=== PATIENT | female | born 1965 | race Caucasian/White ===

== ENCOUNTER 2022-05-09 09:09 | Outpatient (CLI) | payer SELFPAY | END 2022-05-09 09:10 | disposition home or self-care (01) | PROVIDERS: PCP Family Medicine; Visit Provider Family Medicine | DX: Z00.00 Encounter for general adult medical examination without abnormal findings (principal); E78.5 Hyperlipidemia, unspecified; E03.9 Hypothyroidism, unspecified; R73.03 Prediabetes; Z12.4 Encounter for screening for malignant neoplasm of cervix; F32.9 Major depressive disorder, single episode, unspecified | CPT/HCPCS: 87624; 88175 ==

== ENCOUNTER 2023-10-08 07:55 | Outpatient (CLI) | payer OTHER, SELFPAY | END 2023-10-08 07:56 | disposition home or self-care (01) | LOC: NFLDREF 10-10 05:50 | PROVIDERS: PCP Family Medicine; Referring Provider Family Medicine; Visit Provider Family Medicine | DX: R73.03 Prediabetes (principal); E78.5 Hyperlipidemia, unspecified; E03.9 Hypothyroidism, unspecified | CPT/HCPCS: 80053; 80061; 84439; 84443 ==

== ENCOUNTER 2024-01-02 08:01 | Outpatient (CLI) | payer OTHER, SELFPAY ==
--- NOTE | 2024-01-02 08:15 | MM_ITS ---
Patient: ANGELO GOMEZ Facility:?[facility] RIS Patient ID:?[id number] Site Patient ID:?[id number]. Site :?[id number] Study:?XRay-Breast Bilateral 3D W/CAD-01/02/2024 8:50:27 AM Ordering Physician:Rosi Final Report: BILATERAL SCREENING MAMMOGRAM WITH COMPUTER-AIDED DETECTION AND TOMOSYNTHESIS TECHNIQUE: CC and MLO views were obtained. These mammographic images have been obtained using full-field digital technique. These mammographic images were interpreted with the benefit of computer-aided detection. Breast Tomosynthesis was used in this interpretation. COMPARISON FILM: 02/08/21, 07/30/18, 10/02/16. FINDINGS: There are scattered areas of fibroglandular density. IMPRESSION: There is no radiographic evidence for malignancy. ASSESSMENT: BI-RADS Category 1: Negative RECOMMENDATION: Routine screening mammogram in 1 year. A lay language report of this examination will be provided to the patient. Christian Tong M.D. Diagnostic Radiologist [email or web address] DSM/sp R& Transcribed: 6:26 p.m. SP/Dictated by: Christian Tong MD @ 01/02/2024 9:40:00 AM Signed by:?Christian Tong MD @01/03/2024 5:37:17 AM (Electronic Signature)
== END 2024-01-02 08:02 | disposition home or self-care (01) ==
LOC: MAMMO 08:02
PROVIDERS: PCP Family Medicine; Visit Provider Family Medicine
DX: Z12.31 Encounter for screening mammogram for malignant neoplasm of breast (principal)
CPT/HCPCS: 77063; 77067

== ENCOUNTER 2024-04-17 07:36 | Outpatient (CLI) | payer OTHER, SELFPAY ==
--- OUTSIDE RECORDS SUMMARY | 2024-04-29 12:41 | XMS_ITS | Clinical Summary ---
Author Organization [employer] [facility] [employer] [facility] Address [place], [place] [address] Care Team Providers Care Counter Sales Person Name Role Phone Andre Salazar MD Primary Care Provider + Allergies Active Allergy Reactions Criticality Noted Date Comments Venlafaxine Analogues Headache High 12/30/2012 Tiagabine 05/17/2006 Pregabalin Dizziness,Throat Swelling/Closing High 03/30/2015 Medications Medication Sig Dispensed Refills Start Date End Date Status levothyroxine (SYNTHROID) 88 mcg tablet Take 1 tablet by mouth once daily. 0 09/10/2011 Active methylphenidate (RITALIN) 10 mg tabletIndications: RSD (reflex sympathetic dystrophy) Take 1 tablet by mouth 2 times daily 60 tablet 08/20/2016 Active oxyCODONE-acetamin ophen, 5-325 mg, (PERCOCET) 5-325 mg per tabletIndications: Complex regional pain syndrome type 1 of left upper extremity,Encounte r for medication refill Take 1-2 tablets by mouth every 4 hours if needed for Pain Max acetaminophen dose: 4000mg in 24 hrs. 240 tablet 08/20/2016 Active LORazepam (ATIVAN) 2 mg tabIndications:RSD (reflex sympathetic dystrophy) Take 1 tablet by mouth at bedtime. May repeat x 1 60 tablet 08/20/2016 Active Cimetidine (TAGAMET) 800 mg tablet Take 1 tablet by mouth at bedtime. 0 08/23/2016 Active Active Problems Problem Noted Date Diagnosed Date Sleep disturbance, unspecified 03/02/2013 Vitamin D deficiency 09/08/2012 Lateral epicondylitis of elbow 09/10/2011 Controlled Substance Treatment Agreement 009 Overview: Controlled substance agreement contract was signed 03/13/[address] Andre salazar Controlled substance agreement for Methylphenidate 10mg, Percocet 5/325mg, Vicodin 5/500mg on file and signed 07/18/09. Designated pharmacy: [facility] Prescribing physician: Andre Salazar MD Diagnosis: Other malaise and fatigue 06/12/2006 Anemia, unspecified 05/17/2006 Reflex sympathetic dystrophy of the upper limb 0 05/17/2006 Overview: left upper Social History Tobacco Use Types Packs/Day Years Used Date Smoking Tobacco: Former Cigarettes Q uit: 04/04/2005 Smokeless Tobacco: Never Tobacco Cessation:Counseling Given: Yes Alcohol Use Standard Drinks/Week Comments Yes 3 (1 standard drink = 0.6 oz pur e alcohol) Sex and Gender Information Value Date Recorded Sex Assigned at Not on file Gender Identity Not on file Sexual Orientation Not on file Obstetrics History Para Term AB IAB SAB Ectopic Multiple Livin g Live Births 2 2 2 Date Outcome GA Total Labor Labor/2nd/3rd Weight Sex Type Anes PTL Lynne A1 A5 Name Clin Term Term Last Filed Vital Signs Vital Sign Reading Time Taken Comments Blood Pressure 143/87 10/04/2016 8:44 AM LIGHTNING PROTECTION INSTALLER Pulse 72 10/04/2016 8:44 AM LIGHTNING PROTECTION INSTALLER Temperature 36.6 ??C (97.8 ??F) 10/04/2016 8 :44 AM LIGHTNING PROTECTION INSTALLER Respiratory Rate 18 08/20/2016 8:24 AM CDT Oxygen Saturation 99% 10/04/2016 8:4 4 AM LIGHTNING PROTECTION INSTALLER Inhaled Oxygen Concentration - - Weight 64.8 kg (142 lb 12.8 oz) 10/04/2016 8:44 AM LIGHTNING PROTECTION INSTALLER Patient weighed with shoes on. Height 156 cm (5' 1.42) 08/23/2016 10: 16 AM CDT Body Mass Index 26.62 08/23/2016 10:16 AM CDT Plan of Treatment Health Maintenance Due Date Last Done Comments Tdap 1975 HIV for age 15-65 1979 Hepatitis C screening for age 18-79 1982 Tetanus booster 1984 Colonoscopy through age 75 2009 Lipids for age 45-75 2009 Mammogram for age 45-75 2009 Zoster (shingles) series for age 50+ (1 of 2) 2014 Depression screening for age 12+ 08/21/2017 08/21/2016, 08/20/2016, 07/13/2016, Additional history exists BMI (ht and wt on same day) for age 18+ 08/23/2017 08/23/2016, 08/20/2016 COVID-19 vaccine series (2022-24 season) 2023 Influenza for age 50-64 07/05/2024 Pap test for age 21-65 05/09/2025 2, 05/09/2022, 06/04/2018, Additional history exists Pneumococcal series for age 6-64 Aged Out No longer eligible based on patient's age to complete this topic Procedures Procedure Name Priority Date/Time Associated Diagnosis Comments HPV THIN PREP Routine 05/09/2022 8:15 AM CDT from Last 3 Months or Most Recently Relevant to Health Maintenance Results * HPV HIGH RISK (05/09/2022 8:15 AM CDT) TYPE 16 Negative Negative 05/11/2022 2:05 PM CDT [facility] TYPE 18 Negative Negative 05/11/2022 2:05 PM CDT [facility] OTHER HIGH RISK TYPES Negative Negative 05/11/2022 2:05 PM CDT [facility] Other (Cervical) 05/09/2022 8:15 AM CDT 05/09/2022 5:34 PM CDT Narrative [facility] - 05/11/2022 2:05 PM CDT HPV types 16, 18, 31, 33, 35, 39, 45, 51, 52, 56, 58, 59, 66 and 68 DNA were undetectable or below the pre-set threshold. Methodology: D1G Dusty 4800 HPV Test Hilary Brothers MD [facility] [address] [place] [address], [place] from Last 3 Months or Most Recently Relevant to Health Maintenance Care Teams Counter Sales Person Relationship Specialty Start Date End Date Andre Salazar MD PCP - General Physical Medicine and Rehabilitation 09/19/12
== END 2024-04-17 07:37 | disposition home or self-care (01) ==
LOC: NFLDREF 04-29 12:40
PROVIDERS: PCP Family Medicine; Referring Provider Family Medicine; Visit Provider Family Medicine
DX: E78.5 Hyperlipidemia, unspecified (principal); E03.9 Hypothyroidism, unspecified; R73.03 Prediabetes
CPT/HCPCS: 80053; 80061; 84439; 84443

== ENCOUNTER 2024-05-17 17:36 | Emergency (ER) | payer OTHER, SELFPAY ==
[2024-05-17 17:47] VITALS: BP 123/102; PULSE 136; RESP 24; TEMP 36.3; O2SAT 99
--- NOTE | 2024-05-17 18:00 | CRLHL7_ITS ---
For Patients: As a result of the Century Cures Act, medical imaging exams and procedure reports are released immediately into your electronic medical record. You may view this report before your referring provider. If you have questions, please contact your health care provider. Indication: VOMITING Technique: Upright and supine views of the abdomen and pelvis. Comparison: None Findings/impression : No evidence of bowel obstruction. No free air. No significant stool burden. The visualized lower thorax is unremarkable. No acute osseous abnormality. Dictated by Chris Cano MD @ 05/17/2024 7:26:27 PM (Electronically Signed)
[2024-05-17] MEDS: ONDANSETRON 2 MG/ML inj 4 MG IVP (18:25)
[2024-05-17] MEDS: 0.9 % SODIUM CHLORIDE 1000 ml 1,000 ML IV ×2 (18:25→19:18)
[2024-05-17 18:30] LABS: Basophils Percent Auto 0.2 % (0.0-3.0); Hematocrit 47.3 % (33.0-51.0); Hemoglobin* 16.2 gm/dL (12.0-16.0); Immature Granulocytes Pct Auto 0.1 %; Lymphocytes Percent Auto 10.1 % (20-44); Mean Corpuscular HGB Conc 34 gm/dL (32-36); Mean Corpuscular Hemoglobin 29 pg (26-34); Mean Corpuscular Volume 84 fL (80-100); Monocytes Percent Auto 3.7 % (0.0-11.0); Neutrophils Percent Auto 85.9 % (42.0-72.0); Platelet Count* 501 K/uL (140-440); RDW Coefficient of Variation % 13.1 % (11.5-15.5); Red Blood Count 5.66 m/uL (4.00-5.20); White Blood Count* 11.25 K/uL (4.50-11.00)
[2024-05-17 18:31] LABS: Lactate* 4.3 mmol/L (0.5-1.9)
[2024-05-17 18:36] LABS: Slide Review Reflex No
--- OUTSIDE RECORDS SUMMARY | 2024-05-17 18:41 | XMS_ITS | Clinical Summary ---
Author Organization [employer] [facility] [employer] [facility] Address [place], [place] [address] Care Team Providers Care Mobile Engineer Name Role Phone Andre Salazar MD Primary [...] on file and signed 07/18/09. Designated pharmacy: [facility] Prescribing physician: Andre Salazar MD Diagnosis: [...] Comments Blood Pressure 143/87 10/04/2016 8:44 AM CIVIL TRANSPORTATION ENGINEER Pulse 72 10/04/2016 8:44 AM CIVIL TRANSPORTATION ENGINEER Temperature 36.6 ??C (97.8 ??F) 10/04/2016 8 :44 AM CIVIL TRANSPORTATION ENGINEER Respiratory Rate 18 08/20/2016 8:24 AM CDT Oxygen Saturation 99% 10/04/2016 8:4 4 AM CIVIL TRANSPORTATION ENGINEER Inhaled Oxygen Concentration - - Weight 64.8 kg (142 lb 12.8 oz) 10/04/2016 8:44 AM CIVIL TRANSPORTATION ENGINEER Patient weighed with shoes on. Height 156 [...] 16 Negative Negative 05/11/2022 2:05 PM CDT [facility] TYPE 18 Negative Negative 05/11/2022 2:05 PM CDT [facility] OTHER HIGH RISK TYPES Negative Negative 05/11/2022 2:05 PM CDT [facility] Other (Cervical) 05/09/2022 8:15 AM CDT 05/09/2022 5:34 PM CDT Narrative [facility] - 05/11/2022 2:05 PM CDT HPV types 16, 18, 31, 33, 35, 39, 45, 51, 52, 56, 58, 59, 66 and 68 DNA were undetectable or below the pre-set threshold. Methodology: ChargeBee Dusty 4800 HPV Test Hilary Brothers MD [facility] [address] [place] [address], [place] from Last 3 Months or Most Recently Relevant to Health Maintenance Care Teams Mobile Engineer Relationship Specialty Start Date End Date Andre Salazar MD PCP - General Physical Medicine and Rehabilitation 09/19/12
[2024-05-17 18:43] LABS: Albumin* 5.9 g/dL (3.3-5.0); Chloride* 97 mmol/L (96-114); Sodium* 139 mmol/L (135-149)
[2024-05-17 18:46] LABS: Alkaline Phosphatase* 89 U/L (40-150); Anion Gap 31 mEq/L (7-15); Aspartate Amino Transferase* 34 U/L (12-35); Bilirubin Direct* 0.5 mg/dL (0.0-0.5); Bilirubin Total* 0.8 mg/dL (0.1-1.5); Blood Urea Nitrogen* 24 mg/dL (7-30); Calcium* 10.9 mg/dL (8.4-10.6); Carbon Dioxide* 11 mmol/L (20-32); Creatinine* 1.7 mg/dL (0.5-1.5); Estimated Glomerular Filt Rate 34 ml/min; Glucose* 158 mg/dL (60-115); Total Protein* 9.8 g/dL (6.0-8.3)
[2024-05-17 18:47] LABS: Alanine Aminotransferase* 38 U/L (4-35); Lipase* 73 U/L (23-300)
--- NOTE | 2024-05-17 19:28 | ED.GENADULT ---
HPI - General Adult General Chief complaint: Nausea/Vomiting Stated complaint: vomiting, dehydrated, headaches, dizziness Time Seen by Provider: 05/17/24 17:38 Source: patient Mode of arrival: ambulatory Limitations: no limitations History of Present Illness HPI narrative: 58-year-old female coming in today complaining of vomiting going on for the last 2 straight days. She states that she has not been able to keep anything down including her medications. She feels weak. She has abdominal discomfort when she vomits secondary to cramping. She denies any diarrhea. She denies any urinary symptoms. She denies any recent travel or sick contacts. She does state that when a week and half ago she did have her dose of Tirzepatide increased, her 2nd dose was done this Saturday just a couple days prior to when the vomiting started. She denies any blood in her vomitus. Related Data Home Medications ?Medication ?Instructions ?Recorded ?Confirmed esomeprazole magnesium 20 mg 20 mg PO QDAY 05/09/22 05/01/24 capsule,delayed release (Nexium) multivitamin 1 tab PO QDAY 08/14/22 05/01/24 tirzepatide 5 mg/0.5 mL 5 mg subcut QWEEK 05/01/24 05/01/24 subcutaneous pen injector Previous Rx's ?Medication ?Instructions ?Recorded estradiol 0.01% (0.1 mg/gram) 1 g vaginal 2XW #42.5 grams 10/10/23 vaginal cream escitalopram oxalate 20 mg tablet 20 mg PO QDAY #90 tabs 10/14/23 (Lexapro) levothyroxine 100 mcg capsule 100 mcg PO QDAY #90 caps 05/01/24 metformin 500 mg tablet,extended 500 mg PO QPM #90 tabs 05/01/24 release 24 hr rosuvastatin 5 mg tablet 5 mg PO DAILY #90 tabs 05/01/24 promethazine 25 mg tablet 25 mg PO TID PRN #10 tabs 05/17/24 Allergies Allergy/AdvReac Type Severity Reaction Status Date / Time venlafaxine Allergy Severe Vomiting Verified 05/01/24 08:31 trazodone Allergy Unknown Hives Verified 05/01/24 08:31 Review of Systems Status of ROS: Reports: 10 or more systems reviewed and unremarkable except as noted in History and below [facility] Medical History Reaction to chronic stress ?F43.8 - Other reactions to severe stress (ICD-10) Degenerative disc disease Prediabetes (03/2022) ?R73.03 - Prediabetes (ICD-10) Hypothyroidism ?E03.9 - Hypothyroidism, unspecified (ICD-10) History of peptic ulcer (2003) ?Z87.11 - Personal history of peptic ulcer disease (ICD-10) History of anxiety disorder ?Z86.59 - Personal history of other mental and behavioral disorders (ICD-10) Dyslipidemia ?E78.5 - Hyperlipidemia, unspecified (ICD-10) Depression ?F32.A - Depression, unspecified (ICD-10) Saint Hilaire's syndrome ?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 - Saint Hilaire's syndrome, unspecified (ICD-10) Complex regional pain syndrome type 1 of right upper extremity (2001) ?G90.511 - Complex regional pain syndrome I of right upper limb (ICD-10) Surgical History History of tubal ligation ?Z98.51 - Tubal ligation status (ICD-10) History of foot surgery (2005) ?Z98.890 - Other specified postprocedural states (ICD-10) History of endometrial ablation (2007) ?Z98.890 - Other specified postprocedural states (ICD-10) History of section ?Z98.891 - History of uterine scar from previous surgery (ICD-10) History of appendectomy (1975) ?Z90.49 - Acquired absence of other specified parts of digestive tract (ICD-10) Family History Other Adopted Social History Narrative: , retired, 2 kids, 3 dogs, adult son with brain injury living at home Non-smoker, quit 12 years, hx 18 pack years Social drinker, 3-4 drinks/week Uninsured, pays rivera Smoking Status: Former smoker Do you use any of these nicotine containing products: None Second hand tobacco smoke exposure: No How often do you have a drink containing alcohol: never AUDIT-C Alcohol total score: 0 Non-prescribed substance use: denies use Little interest or pleasure in doing things: not at all Feeling down, depressed, or hopeless: not at all Exam Narrative: Exam Narrative: Well-nourished well-developed patient in mild distress, very uncomfortable. Alert and oriented. Answers questions appropriately. Mood and affect are appropriate. Thoughts are goal oriented and rational. No tangential or magical thinking noted. Patient speaks in full sentences without needing to catch her breath. HEENT: Normocephalic atraumatic. Pupils are equally round reactive to light. Extraocular muscles are intact. Conjunctivae are moist without any icterus noted. Slightly dry mucous membranes. Posterior pharynx is normal. Neck is soft without any lymphadenopathy or thyromegaly. No masses are appreciated. Cardiovascular: Heart is regular rhythm, tachycardic, S1 and S2 are present without any murmurs. Lungs: Clear to auscultation bilaterally no wheezes rhonchi or rales are appreciated. Patient takes deep breaths without any discomfort. Abdomen: Soft and nontender nondistended with normal bowel sounds. No guarding or rebound. No masses or organomegaly appreciated. Extremities: Bilateral lower extremities are without edema. Normal DP and PT pulses. Skin: Well perfused without any obvious rashes. Const: Vital Signs, click to edit/add: Vital Signs - 24 hr 05/17/24 17:47 05/17/24 19:58 05/17/24 20:58 Temperature 97.3 F L 97.5 F L 97.6 F Pulse Rate [Left P ulse Oximeter] 136 H 94 94 Respiratory Rate 24 18 16 Blood Pressure [Le ft Upper Arm] 123/102 H 129/78 114/71 Pulse Oximetry 99 97 97 Oxygen Delivery Me thod Room Air Room Air Room Air Course Course ED Course: IV is established and fluids are started. Patient receives Zofran. Labs are drawn: CBC shows an elevated white cell count, elevated hemoglobin and elevated platelet count. Normal sodium and potassium. Carbon dioxide is low at 11, anion gap is quite elevated at 31. Creatinine is elevated at 1.7. Lactate is elevated at 4.3, Calcium elevated at 10.9. Total protein and albumin both elevated. Normal lipase. Zofran did not really help her feelings of nausea. So we did give her a dose of IM Phenergan and she did feel significantly better. She did receive 2 L of normal saline. Repeat blood work showed that her CBC had normalized, chemistries were significantly improved, creatinine down to normal at 1.2, lactate down to normal at 1.5, calcium levels normalized. Re-evaluated the patient at this time, she stated that she was feeling significantly better she was no longer tachycardic. She was in a bunch better mood and was smiling. Vital Signs Vital signs: Initial Vital Signs Temperature 97.3 F L 05/17/24 17:47 Temperature Source Temporal Artery Scan 05/17/24 17:47 Pulse Rate 136 H 05/17/24 17:47 Pulse Rhythm Regular 05/17/24 17:47 Respiratory Rate 24 05/17/24 17:47 Blood Pressure 123/102 H 05/17/24 17:47 Blood Pressure Mean 109 H 05/17/24 17:47 Blood Pressure Position Semi-Fowlers 05/17/24 17:47 Pulse Oximetry 99 05/17/24 17:47 Oxygen Delivery Method Room Air 05/17/24 17:47 Vital Signs Temperature 97.3 F L 05/17/24 17:47 Pulse Rate 136 H 05/17/24 17:47 Respiratory Rate 24 05/17/24 17:47 Blood Pressure 123/102 H 05/17/24 17:47 Pulse Oximetry 99 05/17/24 17:47 Oxygen Delivery Method Room Air 05/17/24 17:47 Temperature 97.6 F 05/17/24 20:58 Pulse Rate 94 05/17/24 20:58 Respiratory Rate 16 05/17/24 20:58 Blood Pressure 114/71 05/17/24 20:58 Pulse Oximetry 97 05/17/24 20:58 Oxygen Delivery Method Room Air 05/17/24 20:58 Medications Administered Medications: Discontinued Medications Generic Name Dose Route Start Last Admin Trade Name Freq PRN Reason Stop Dose Admin Sodium Chloride 1,000 mls @ 1,000 mls/hr 05/17/24 18:00 05/17/24 18:25 0.9 % Sodium Chloride 1000 Ml IV 05/17/24 18:59 1,000 mls/hr .Q1H JONNATHAN Administration Sodium Chloride 1,000 mls @ 1,000 mls/hr 05/17/24 18:45 05/17/24 19:18 0.9 % Sodium Chloride 1000 Ml IV 05/17/24 19:44 1,000 mls/hr .Q1H JONNATHAN Administration Ondansetron HCl 4 mg 05/17/24 17:57 05/17/24 18:25 Ondansetron 2 Mg/Ml Inj IVP 05/17/24 17:58 4 mg ONCE ONE Administration Promethazine HCl 25 mg 05/17/24 19:32 05/17/24 19:51 Promethazine 25 Mg/Ml Inj IM 05/17/24 19:33 25 mg ONCE ONE Administration Medical Decision Making MDM Narrative Medical decision making narrative: 58-year-old female with significant dehydration secondary to prolonged vomiting. We discussed causes of vomiting including potential side effect of her medications. Patient will discuss this with her primary care go from there. Recommend she return to the ER she has a return of her symptoms tomorrow and starts vomiting again. Lab Data Lab results reviewed: Yes I reviewed the patient's lab results Labs: Lab Results 05/17/24 05/17/24 Range/Units 18:17 20:42 WBC 11.25 H 8.43 (4.50-11.00) K/uL RBC 5.66 H 4.49 (4.00-5.20) m/uL Hgb 16.2 H 12.8 (12.0-16.0) gm/dL Hct 47.3 37.8 (33.0-51.0) % MCV 84 84 (80-100) fL MCH 29 29 (26-34) pg MCHC 34 34 (32-36) gm/dL RDW Coeff of Jacqueline 13.1 13.0 (11.5-15.5) % Plt Count 501 H 329 (140-440) K/uL Neut % (Auto) 85.9 H 89.3 H (42.0-72.0) % Lymph % (Auto) 10.1 L 7.9 L (20-44) % Blaine % (Auto) 3.7 2.5 (0.0-11.0) % Eos % (Auto) 0.0 0.0 (0.0-7.0) % Baso % (Auto) 0.2 0.1 (0.0-3.0) % Neut # (Auto) 9.70 H 7.50 H (1.7-7.0) K/uL Lymph # (Auto) 1.10 0.70 L (0.90-2.90) K/uL Blaine # (Auto) 0.40 0.20 (0.00-0.90) K/UL Eos # (Auto) 0.00 0.00 (0.00-0.50) K/uL Baso # (Auto) 0.00 0.01 (0.00-0.30) K/uL Abs Immat Gran (auto) 0.00 0.02 (0.00-0.30) K/uL Imm/Tot Granulo (auto) 0.1 0.2 % Sodium 139 139 (135-149) mmol/L Potassium 4.0 3.8 (3.6-5.1) mmol/L Chloride 97 108 (96-114) mmol/L Carbon Dioxide 11 L 13 L (20-32) mmol/L Anion Gap 31 H 18 H (7-15) mEq/L BUN 24 21 (7-30) mg/dL Creatinine 1.7 H 1.2 (0.5-1.5) mg/dL Estimated GFR 34 52 ml/min Glucose 158 H 95 (60-115) mg/dL Lactate 4.3 H* 1.5 (0.5-1.9) mmol/L Calcium 10.9 H 8.9 (8.4-10.6) mg/dL Total Bilirubin 0.8 (0.1-1.5) mg/dL Direct Bilirubin 0.5 (0.0-0.5) mg/dL AST 34 (12-35) U/L ALT 38 H (4-35) U/L Alkaline Phosphatase 89 (40-150) U/L Total Protein 9.8 H (6.0-8.3) g/dL Albumin 5.9 H (3.3-5.0) g/dL Lipase 73 (23-300) U/L Imaging Data X-ray abdomen: Attestation: I have reviewed the pertinent imaging results. Radiologist's impression: Technique: Upright and supine views of the abdomen and pelvis. Comparison: None Findings/impression : No evidence of bowel obstruction. No free air. No significant stool burden. The visualized lower thorax is unremarkable. No acute osseous abnormality. Discharge Plan Discharge Clinical Impression: Vomiting, Acute dehydration Patient Disposition: Home, Self-Care Condition: Improved Additional Instructions: Take nausea medication as needed. Follow-up with your primary care provider as needed. Return to the ER if vomiting returns and you cannot keep down anything. Prescriptions: New promethazine 25 mg tablet 25 mg PO TID PRNQty: 10 0RF No Action multivitamin Tablet 1 tab PO QDAY estradiol 0.01 % (0.1 mg/gram) cream 1 g vaginal 2XW Qty: 42.5 12RF esomeprazole magnesium [Nexium] 20 mg capsule,delayed release(DR/EC) 20 mg PO QDAY tirzepatide 5 mg/0.5 mL pen injector 5 mg subcut QWEEK metformin 500 mg tablet extended release 24 hr 500 mg PO QPM Qty: 90 3RF rosuvastatin 5 mg tablet 5 mg PO DAILY Qty: 90 3RF levothyroxine 100 mcg capsule 100 mcg PO QDAY Qty: 90 1RF escitalopram oxalate [Lexapro] 20 mg tablet 20 mg PO QDAY Qty: 90 3RF Follow Up/Referrals: Hilary Brothers MD [Primary Care Provider] - Stand Alone Forms: [facility] Info Instructions
[2024-05-17] MEDS: PROMETHAZINE 25 MG/ML INJ IM (19:51)
[2024-05-17 19:58] VITALS: BP 129/78; PULSE 94; RESP 18; TEMP 36.4; O2SAT 97
[2024-05-17 20:48] LABS: Lactate* 1.5 mmol/L (0.5-1.9)
[2024-05-17 20:52] LABS: Basophils Absolute Auto 0.01 K/uL (0.00-0.30); Basophils Percent Auto 0.1 % (0.0-3.0); Hematocrit 37.8 % (33.0-51.0); Hemoglobin* 12.8 gm/dL (12.0-16.0); Immature Granulocytes Abs Auto 0.02 K/uL (0.00-0.30); Immature Granulocytes Pct Auto 0.2 %; Lymphocytes Percent Auto 7.9 % (20-44); Mean Corpuscular HGB Conc 34 gm/dL (32-36); Mean Corpuscular Hemoglobin 29 pg (26-34); Mean Corpuscular Volume 84 fL (80-100); Monocytes Percent Auto 2.5 % (0.0-11.0); Neutrophils Percent Auto 89.3 % (42.0-72.0); Platelet Count* 329 K/uL (140-440); Red Blood Count 4.49 m/uL (4.00-5.20); White Blood Count* 8.43 K/uL (4.50-11.00)
[2024-05-17 20:58] VITALS: BP 114/71; PULSE 94; RESP 16; TEMP 36.4; O2SAT 97
[2024-05-17 20:58] LABS: Slide Review Reflex No
[2024-05-17 21:06] LABS: Chloride* 108 mmol/L (96-114); Potassium* 3.8 mmol/L (3.6-5.1); Sodium* 139 mmol/L (135-149)
[2024-05-17 21:09] LABS: Anion Gap 18 mEq/L (7-15); Blood Urea Nitrogen* 21 mg/dL (7-30); Carbon Dioxide* 13 mmol/L (20-32); Creatinine* 1.2 mg/dL (0.5-1.5); Estimated Glomerular Filt Rate 52 ml/min
[2024-05-17 21:10] LABS: Calcium* 8.9 mg/dL (8.4-10.6); Glucose* 95 mg/dL (60-115)
== END 2024-05-17 21:33 | disposition home or self-care (01) ==
PROVIDERS: Emergency Provider Family Medicine; PCP Family Medicine
DX: R11.10 Vomiting, unspecified (principal); E86.0 Dehydration
CPT/HCPCS: 36415; 74019; 80048; 80076; 83605; 83690; 85025; 96372; 96374; 99284; J2405; J2550; J7030

== ENCOUNTER 2025-02-04 08:16 | Outpatient (CLI) | payer SELFPAY | END 2025-02-04 08:17 | disposition home or self-care (01) | PROVIDERS: PCP Family Medicine; Referring Provider Family Medicine; Visit Provider Family Medicine | DX: E78.5 Hyperlipidemia, unspecified (principal); E03.9 Hypothyroidism, unspecified; R73.03 Prediabetes | CPT/HCPCS: 80053; 80061; 84439; 84443 ==